=== PATIENT | male | born 1995 | race Caucasian/White ===

== ENCOUNTER 2023-08-14 08:00 | Outpatient (CLI) | payer OTHER, SELFPAY ==
[2023-08-14 12:01] LABS: Basophils Absolute Auto 0.1 K/mm3 (0.0-0.1); Basophils Percent Auto 1.4 % (0.2-1.2); Eosinophils Absolute Auto 0.5 K/mm3 (0-0.3); Eosinophils Percent Auto 5.3 % (0-4.4); Hematocrit 46.6 % (42.0-52.0); Hemoglobin 15.4 g/dL (14.0-18.0); Immature Granulocyte Absolute 0.15 K/mm3 (0.00-0.031); Immature Granulocyte Percent A 1.7 % (0-0.5); Lymphocytes Absolute Auto 2.32 K/mm3 (0.9-3.2); Lymphocytes Percent Auto 26.5 % (18.3-44.2); Mean Corpuscular Hemoglobin 29.6 pg (26-34); Mean Corpuscular Volume 89.6 fl (80-100); Monocytes Absolute Auto 0.8 K/mm3 (0.1-0.6); Monocytes Percent Auto 9.4 % (2.6-8.5); Neutrophils Absolute Auto 4.9 K/mm3 (1.3-6.7); Neutrophils Percent Auto 55.7 % (45.5-73.1); Platelet Count Result 364 k/mm3 (150-375); White Blood Count 8.7 K/mm3 (4.5-10.0)
[2023-08-14 12:34] LABS: Alanine Aminotransferase 30 U/L (6-50); Albumin Level 4.3 g/dL (3.5-5.1); Alkaline Phosphatase 55 U/L (38-126); Anion Gap 7 mmol/L (8-16); Aspartate Amino Transferase 55 U/L (17-59); Bilirubin,Total 0.9 mg/dL (0.2-1.3); Blood Urea Nitrogen 14 mg/dL (9-20); Calcium 9.4 mg/dL (8.4-10.2); Carbon Dioxide 32 mmol/L (22-30); Chloride 103 mmol/L (98-107); Cholesterol 144 mg/dL (0-200); Estimated Glomerular Filt Rate > 60; Glucose 86 mg/dL (65-110); HDL Direct 26 mg/dL; Potassium 4.3 mmol/L (3.4-5.0); Sodium 142 mmol/L (137-145); Triglycerides 154 mg/dL (<150)
[2023-08-14 12:54] LABS: LDL Cholesterol Direct 83 mg/dL
== END 2023-08-14 08:01 | disposition home or self-care (01) ==
LOC: ANHGOSHLAB 08:02
PROVIDERS: PCP Internal Medicine; Visit Provider Nurse Practitioner
DX: Z13.29 Encounter for screening for other suspected endocrine disorder (principal); Z13.220 Encounter for screening for lipoid disorders
CPT/HCPCS: 36415; 80053; 80061; 85025

== ENCOUNTER 2025-09-02 09:00 | Outpatient (CLI) | payer OTHER, SELFPAY ==
--- OUTSIDE RECORDS SUMMARY | 2025-09-02 09:03 | XMS_ITS | Clinical Summary ---
Author Organization [facility] – [place] [address] Address [address] [place] [id number] Care Team Providers Care Textile Knitter Name Role Phone HenricoJosue torres MD Primary Care Provider [phone] Allergies No known active allergies Medications No known medications Active Problems No known active problems Social History Tobacco Use Types Packs/Day Years Used Date Smoking Tobacco: Never Smokeless Tobacco: Never Alcohol Use Standard Drinks/Week Comments No 0 (1 standard drink = 0.6 oz pur e alcohol) Personal Safety Answer Date Recorded Getting School Help Needed Not on file 12/19 Sex and Gender Information Value Date Recorded Sex Assigned at Not on file Legal Sex Male 10:39 AM [employer] Gender Identity Not on file Sexual Orientation Not on file Last Filed Vital Signs Vital Sign Reading Time Taken Comments Blood Pressure 126/82 04/18/2020 12:46 PM CDT Pulse 68 04/18/2020 12:46 PM CDT Temperature 36.9 C (98.4 F) 04/18/2020 12:46 PM CDT Respiratory Rate 18 04/18/2020 12:46 PM CDT Oxygen Saturation 98% 04/18/2020 12:46 PM CDT Inhaled Oxygen Concentration - - Weight 103.4 kg (228 lb) 04/18/2020 12:46 PM CDT Height 177.8 cm (5' 10) 04/18/2020 12:46 PM CDT Body Mass Index 32.71 04/18/2020 12:46 PM CDT Plan of Treatment Not on file Insurance [facility] CHOICE PLUS [facility] HMO/PPO Address: [facility] [id number] [place] [address] Care Teams Textile Knitter Relationship Specialty Start Date End Date Josue Weber MD PCP - General 03/03/14
[2025-09-03 18:52] LABS: Hematocrit 47.8 % (42.0-52.0); Hemoglobin 15.8 g/dL (14.0-18.0); Immature Granulocyte Percent A 0.4 % (0-0.5); Lymphocytes Absolute Auto 1.77 K/mm3 (0.9-3.2); Mean Corpuscular HGB Conc 33.1 g/dl (32-36); Mean Corpuscular Hemoglobin 29.5 pg (26-34); Mean Corpuscular Volume 89.2 fl (80-100); Nucleated Red Blood Cells Absolute Auto 0.000 K/mm3 (0.0-0.012); Nucleated Red Blood Cells Perc 0.0 % (0.0-0.2); Platelet Count Result 294 k/mm3 (150-375); Red Blood Count 5.36 M/mm3 (4.6-6.20); White Blood Count 7.3 K/mm3 (4.5-10.0)
[2025-09-03 19:10] LABS: Alanine Aminotransferase 59 U/L (6-50); Albumin Level 4.6 g/dL (3.5-5.1); Alkaline Phosphatase 61 U/L (38-126); Anion Gap 8 mmol/L (4-12); Aspartate Amino Transferase 43 U/L (17-59); Bilirubin,Total 1.6 mg/dL (0.2-1.3); Blood Urea Nitrogen 15 mg/dL (9-20); Calcium 9.4 mg/dL (8.4-10.2); Carbon Dioxide 30 mmol/L (22-30); Chloride 101 mmol/L (98-107); Cholesterol 159 mg/dL (0-200); Estimated Glomerular Filt Rate > 60; Glucose 61 mg/dL (65-110); HDL Direct 36 mg/dL; Potassium 3.8 mmol/L (3.4-5.0); Sodium 139 mmol/L (137-145); Total Protein 8.4 g/dL (6.3-8.2); Triglycerides 126 mg/dL (<150)
== END 2025-09-02 09:01 | disposition home or self-care (01) ==
LOC: ANHGOSHLAB 09:01
PROVIDERS: PCP Nurse Practitioner; Visit Provider Nurse Practitioner
DX: Z13.220 Encounter for screening for lipoid disorders (principal); Z13.29 Encounter for screening for other suspected endocrine disorder
CPT/HCPCS: 36415; 80053; 80061; 85025